=== PATIENT | female | born 1930 | race Caucasian/White ===

== ENCOUNTER 2016-11-26 15:16 | Outpatient (CLI) | payer MEDICARE, OTHER ==
[2015-05-26 06:32] VITALS: BP 130/70
[2016-11-26 21:51] LABS: TOTAL PROTEIN 7.2 g/dL (6.0-8.5)
== END 2016-11-26 15:17 ==
LOC: LAB 15:16
PROVIDERS: ATTEND Family Medicine
DX: I25.10 Atherosclerotic heart disease of native coronary artery without angina pectoris (principal)
CPT/HCPCS: 36415; 80053; 80061

== ENCOUNTER 2016-12-06 11:22 | Outpatient (CLI) | payer MEDICARE, OTHER ==
[2015-05-26 06:32] VITALS: BP 130/70
== END 2016-12-06 11:23 ==
LOC: OUT 11:22
PROVIDERS: ATTEND Colon & Rectal Surgery
DX: K59.00 Constipation, unspecified (principal)
CPT/HCPCS: 99212; G0463

== ENCOUNTER 2017-03-05 08:33 | Outpatient (CLI) | payer MEDICARE, OTHER ==
[2015-05-26 06:32] VITALS: BP 130/70
--- NOTE | 2017-03-05 12:49 | Diagnostic Imaging Report ---
DELVIS SEE [facility] [address] [facility] [address] [address] Report Submission Date: March 05, 2017 11:42:44 AM CDT Patient Study Name: SADE BUCKLEY Date: March 05, 2017 8:43:53 AM CDT MRN: [id number] Modality Type: CR Gender: F Description: SPINE : 34 Institution: [facility] Physician: DELVIS SEE Cervical spine - three views Clinical history: Fall. Pain. Findings: Examination of the cervical spine AP, lateral and open mouth views demonstrates vertebrae to be anatomically aligned. There is narrowing of the disc spaces and facet joints throughout the cervical vertebrae. Prevertebral soft tissues are within normal limits. The C1-2 articulation is normal and the base of the odontoid is intact. Impression: 1. Diffuse spondylosis. 2. No fracture. Electronically signed on March 05, 2017 11:42:44 AM CDT by: Yosvany COLON
--- NOTE | 2017-03-05 12:49 | Diagnostic Imaging Report ---
DELVIS SEE [facility] [address] [facility] [address] [address] Report Submission Date: March 05, 2017 11:41:21 AM CDT Patient Study Name: SADE BUCKLEY Date: March 05, 2017 8:49:32 AM CDT MRN: [id number] Modality Type: CR Gender: F Description: SHOULDER : 34 Institution: [facility] Physician: DELVIS SEE Left shoulder - three views Clinical history: Fall. Pain. Findings: Examination of the left shoulder in multiple views demonstrates degenerative changes with narrowing of the acromioclavicular and glenohumeral joints with osteophyte formation. There is mild deformity of the humeral neck and head suggesting old trauma. There is no obvious acute fracture. Impression: 1. Degenerative changes. 2. Deformity humeral neck and head likely related to an old injury. 3. No definite acute fracture. Electronically signed on March 05, 2017 11:41:21 AM CDT by: Yosvany COLON
== END 2017-03-05 08:34 ==
LOC: RAD 08:33
PROVIDERS: ATTEND Family Medicine
DX: M25.512 Pain in left shoulder (principal); M54.2 Cervicalgia
CPT/HCPCS: 72040; 73030

== ENCOUNTER 2017-09-12 09:39 | Outpatient (CLI) | payer MEDICARE, OTHER ==
[2015-05-26 06:32] VITALS: BP 130/70
[2017-09-12 10:31] LABS: eGFR (African) > 60; eGFR (Non-African) > 60
== END 2017-09-12 09:40 ==
LOC: LAB 09:39
PROVIDERS: ATTEND Family Medicine
DX: R10.84 Generalized abdominal pain (principal)
CPT/HCPCS: 36415; 80048

== ENCOUNTER 2017-09-13 08:44 | Outpatient (CLI) | payer MEDICARE, OTHER ==
[2015-05-26 06:32] VITALS: BP 130/70
--- NOTE | 2017-09-13 11:36 | Diagnostic Imaging Report ---
DELVIS SEE [facility] [address] [facility] [address] [place] [address]. [id number] Report Submission Date: Sep 13, 2017 11:34:47 AM [employer] Patient Study Name: SADE BUCKLEY Date: Sep 13, 2017 10:27:36 AM [employer] MRN: [id number] Modality Type: CT\SR Gender: F Description: CT ABD & PELVIS W/ CON : 34 Institution: [facility] Physician: DELVIS SEE Examination: CT Abdomen/pelvis History: Abdominal discomfort Comparison exams: None available Technique: CT Abdomen/pelvis with IV protocol. Findings: Liver demonstrates mild diffuse low attenuation. Spleen, adrenals, pancreas, and kidneys are without gross irregularity. No abnormal enhancement. Surgical clips gallbladder fossa. 1.5 cm right renal cyst. No suspicious calcifications. Ureters not well visualized. Bladder margins without gross abnormality. Abdominal aorta demonstrates peripheral atherosclerotic disease. No aneurysm. Cardiac silhouette not enlarged. Artifact from cardiac pacemaker. Contrast within the bowel. Scattered loops of small bowel appear to be prominent with air-fluid levels. Stool within the large bowel limiting sensitivity. No mesenteric inflammatory changes or free fluid. Appendix not visualized. Few sigmoid diverticula. No adjacent inflammation. Hiatal hernia. Osseous structures demonstrate osteopenia and degenerative changes. Lung bases demonstrate parenchymal scarring. Posterior pleural thickening. No definite effusion. Impression: Prominent loops of small bowel with air-fluid levels suggesting gastroenteritis. No suspicious renal calcification. Fatty liver. Small hiatal hernia. Sigmoid diverticulosis. No evidence for acute diverticulitis. Lung base scarring and possible mild congestive edema. Electronically signed on Sep 13, 2017 11:34:47 AM [employer] by: Regulo COLON
== END 2017-09-13 08:45 ==
LOC: RAD 08:44
PROVIDERS: ATTEND Family Medicine
DX: R10.84 Generalized abdominal pain (principal)
CPT/HCPCS: 74177; Q9966; Q9967

== ENCOUNTER 2017-09-18 10:47 | Outpatient (CLI) | payer MEDICARE, OTHER ==
[2015-05-26 06:32] VITALS: BP 130/70
== END 2017-09-18 10:50 ==
LOC: RAD 10:47
PROVIDERS: ATTEND Internal Medicine Hematology & Oncology
DX: M81.0 Age-related osteoporosis without current pathological fracture (principal)
CPT/HCPCS: 77080

== ENCOUNTER 2017-11-18 14:49 | Emergency (ER) | payer MEDICARE, OTHER ==
--- NOTE | 2017-11-18 15:05 | ED Physician Documentation ---
General Adult - HISTORIAN Historian: patient - HPI Stated Complaint: facial lacerations Chief Complaint: General Adult Onset: minutes Timing: still present Severity: moderate Further Comments: yes (Pt is an 87 yo female who fell when she missed a step, and whose glassed cut into her face. Pt has lacerations on the L side of her face, one lateral to her eye, one in the brow, and one below in the L cheek. Pt did not injure her neck or strike her head very hard. It was her glasses, she says, that cut into her face. Tetanus is utd.) - ROS CONST: no problems EYES/ENT: none CVS/RESP: none GI/: none MS/SKIN/LYMPH: other (facial lacerations) - PAST HX Past History: other (GERD, HTN, RA, Breast lump, pacemaker.) Surgeries/Procedures: cardiac bypass Allergies/Adverse Reactions: Allergies Allergy/AdvReac Type Severity Reaction Status Date / Time No Known Drug Allergies Allergy Verified 11/18/17 15:05 Home Medications: Ambulatory Orders Medication Instructions Recorded Celecoxib 200 mg PO D 04/22/15 Acetaminophen [Tylenol] 650 mg PO Q4 PRN 04/28/15 Diclofenac Sodium [Voltaren] 1 appl TOP TID 04/28/15 Ipratropium/Albuterol Sulfate 3 ml INH Q2H PRN 04/28/15 [Duoneb] Magnesium Hydroxide [Milk of 30 ml PO D PRN 04/28/15 Magnesia] Metoprolol Tartrate [Lopressor] 50 mg PO DAILY 04/28/15 Aspirin [Nisha] 325 mg PO BID tablet 05/24/15 - SOCIAL HX Smoking History: non-smoker - FAMILY HX Family History: No - VITAL SIGNS Vital Signs: Vital Signs Temp Pulse Resp BP Pulse Ox 130/70 05/26/15 05:00 - REVIEWED ASSESSMENTS Nursing Assessment Reviewed: Yes Vitals Reviewed: Yes Procedures Wound Location: face, other (Lacerations near L eye, #1 in brow 1.5 cm, #2 lateral to eye 2 cm, #3 L cheek 2 cm) Wound Length: #1 1.5 cm; #2 2 cm; #3 2 cm Wound's Depth, Shape: superficial Wound Explored: clean Betadine Prep?: Yes Anesthesia: 1% Lidocaine Volume of Anesthetic: 5 cc Wound Debrided: minimal Wound Repaired With: sutures Suture Size/Type: 5:0, nylon (#1) 1 suture; #2) 3 sutures; #3) 3 sutures.) Number of Sutures: 7 Layer Closure?: No Progress - Progress Progress: Triple abx applied in ER. D/c instructions: Apply topical antibiotic such as Neosporin, Bacitracin or Triple Antibiotic to sutured areas twice a day for 5 days. Follow up with primary provider in 5 to 7 days for removal of 7 sutures. General Adult Physical Exam - PHYSICAL EXAM GENERAL APPEARANCE: mild distress EENT: eye inspection normal NECK: normal inspection, supple RESPIRATORY: no resp distress, chest non-tender, breath sounds normal CVS: reg rate & rhythm, heart sounds normal BACK: normal inspection SKIN: other (Lacerations near L eye, #1 in brow 1.5 cm, #2 lateral to eye 2 cm, #3 L cheek 2 cm) EXTREMITIES: non-tender, normal range of motion NEURO: oriented X3, motor nml, sensation nml Discharge Clincal Impression: Face lacerations Qualifiers: Encounter type: initial encounter Qualified Code(s): S01.81XA - Laceration without foreign body of other part of head, initial encounter Referrals: Rachel Webster MD [Primary Care Provider] - Condition: Good Disposition: 01 HOME, SELF-CARE Decision to Admit: NO Decision Time: 15:40
[2017-11-18] MEDS: Lidocaine 1% 5ml(IM or SUTURE)(PAIN CLINIC) IJ ONE (15:23)
[2017-11-18 15:49] VITALS: BP 106/62
== END 2017-11-18 15:47 | disposition home or self-care (01) ==
LOC: ED 14:49
DX: S01.81XA Laceration without foreign body of other part of head, initial encounter (principal); W19.XXXA Unspecified fall, initial encounter; Y92.9 Unspecified place or not applicable; Y93.9 Activity, unspecified
CPT/HCPCS: 12002; 99283

== ENCOUNTER 2019-10-15 11:05 | Emergency (ER) | payer MEDICARE, OTHER ==
--- NOTE | 2019-10-15 11:49 | ED Physician Documentation ---
General Adult - HISTORIAN Historian: patient - HPI Stated Complaint: diarrhea x 10 day, black bm's Chief Complaint: General Adult Onset: days ago (10) Timing: still present Severity: moderate Further Comments: yes (Pt is an 88 yo female with diarrhea x 10 days and with black bm's. Pt has not had abd pain. Pt has had no n/v, chest pain. No lightheadedness.) - ROS CONST: no problems EYES/ENT: none CVS/RESP: none GI/: other (watery bm's x 10 days, then infrequent bm's, black bm's) MS/SKIN/LYMPH: none - PAST HX Past History: other (CHF, GERD, HLD, HTN, breast ca, brain aneurysm repair) Surgeries/Procedures: , cardiac bypass, cholecystectomy, other (Lumpectomy, brain aneurysm repair, appendectomy, hernia repair, ortho surgery) Allergies/Adverse Reactions: Allergies Allergy/AdvReac Type Severity Reaction Status Date / Time No Known Drug Allergies Allergy Verified 11/18/17 15:05 Home Medications: Ambulatory Orders Medication Instructions Recorded Celecoxib 200 mg PO D 04/22/15 Acetaminophen [Tylenol] 650 mg PO Q4 PRN 04/28/15 Diclofenac Sodium [Voltaren] 1 appl TOP TID 04/28/15 Ipratropium/Albuterol Sulfate 3 ml INH Q2H PRN 04/28/15 [Duoneb] Magnesium Hydroxide [Milk of 30 ml PO D PRN 04/28/15 Magnesia] Metoprolol Tartrate [Lopressor] 50 mg PO DAILY 04/28/15 Aspirin [Nisha] 325 mg PO BID tablet 05/24/15 - SOCIAL HX Smoking History: non-smoker - FAMILY HX Family History: No - VITAL SIGNS Vital Signs: Vital Signs Temp Pulse Resp BP Pulse Ox 106/62 11/18/17 15:47 - REVIEWED ASSESSMENTS Nursing Assessment Reviewed: Yes Vitals Reviewed: Yes Progress - Progress Progress: X-ray abdomen: Nonspecific bowel gas pattern. Dr. Webster's office will call you to set up an appointment for endoscopy. Follow up with Dr. Webster at your appointment on Saturday, October 21, 2019. Return to ER if you have new symptoms such as rectal bleeding, lightheadedness or if you have new concerns. ED Results Lab/Radiology - Orders Orders: ED Orders Category Date Time Status Place IV Lock 1T Care 10/15/19 11:44 Active CBC/PLATELET/DIFF Routine Lab 10/15/19 Ordered CMP Routine Lab 10/15/19 Ordered PT-INR Routine Lab 10/15/19 Ordered PTT Routine Lab 10/15/19 Ordered General Adult Physical Exam - PHYSICAL EXAM GENERAL APPEARANCE: no distress EENT: pharynx normal NECK: normal inspection, supple RESPIRATORY: no resp distress, chest non-tender, breath sounds normal CVS: reg rate & rhythm, heart sounds normal ABDOMEN: soft, no organomegaly, decreased BS RECTAL: heme positive stool BACK: normal inspection, no CVA tenderness SKIN: warm/dry, normal color EXTREMITIES: non-tender, normal range of motion, no evidence of injury NEURO: oriented X3, motor nml, sensation nml Discharge Clincal Impression: melana Referrals: Rachel Webster MD [Primary Care Provider] - Condition: Stable Disposition: 01 HOME, SELF-CARE Decision to Admit: NO Decision Time: 13:25
[2019-10-15 12:00] LABS: eGFR (Non-African) > 60
--- NOTE | 2019-10-15 12:50 | Diagnostic Imaging Report ---
PATIENT MR#: [id number] PATIENT PATIENT NAME: SADE BUCKLEY DATE OF : 1930 REFERRING PHYSICIAN: Flaco Kowalski EXAM DATE: 10/15/2019 ACCESSION NUMBER: [id number] EXAM DESCRIPTION: ABDOMEN 1VIEW Exam: Single-view abdomen. History: Diarrhea. No previous studies are available for comparison. Retained contrast material in the ascending colon is noted. Distended loops of large and small bowel gas throughout the abdomen is seen. No organomegaly is seen. Surgical clips in the right upper quadrant indicate previ ous cholecystectomy. Impression: Nonspecific bowel gas pattern. Read by: Dr. Kyle Bundy Transcribed by: Transcribed Date: Electronically signed by: Dr. Kyle Bundy Date signed: 10/15/2019 12:49:21 PM
[2019-10-15 13:53] VITALS: BP 133/73
[2019-10-15 15:52] LABS: BASOPHILS % 0.5 % (0.0-1.5); NEUTROPHILS # 2.1 # k/uL (1.4-7.7)
== END 2019-10-15 13:30 | disposition home or self-care (01) ==
LOC: ED 11:05
DX: K92.1 Melena (principal)
CPT/HCPCS: 74018; 80053; 82272; 85025; 85610; 85730; 99282; S1016